=== PATIENT | male | born 1975 | race Caucasian/White ===

== ENCOUNTER 2017-09-16 13:52 | Emergency (ER) | payer OTHER ==
[2017-09-16 13:59] VITALS: BP 121/80; PULSE 53; TEMP 98.9; BMI 23.6
--- NOTE | 2017-09-16 14:01 | PDOC ---
History of Present Illness - General Chief Complaint: Injury Stated Complaint: CHIN LAC Time Seen by Provider: 09/16/17 13:53 History Source: Patient Exam Limitations: No Limitations - History of Present Illness Initial Comments: 09/16/17 13:59 41 y/o male playing basketball today tripped and injured chin. No LOC. Occurred 1 hour prior to arrival. UTD with Tetanus. No jaw pain or swelling. No weakness or numbness. Occurred: reports: just prior to arrival Severity: reports: mild Pain Location: reports: face Past History - Past Medical History Allergies/Adverse Reactions: Allergies Allergy/AdvReac Type Severity Reaction Status Date / Time No Known Allergies Allergy Verified 09/16/17 13:53 Home Medications: Ambulatory Orders NK [No Known Home Medication] 09/16/17 Review of Systems - Review of Systems Able to Perform ROS?: Yes Is the patient limited German proficient: No Constitutional: No: Chills, Fever Respiratory: No: Cough, Shortness of Breath Cardiac (ROS): No: Chest Pain ABD/GI: No: Nausea, Vomiting Integumentary: No: Bruising, Erythema All Other Systems: Reviewed and Negative *Physical Exam - Physical Exam General Appearance: Yes: Nourished, Appropriately Dressed. No: Apparent Distress HEENT: positive: EOMI, ANJEL, Normal Voice, Symmetrical, Pharynx Normal. negative: Normal ENT Inspection (small 1 cm jagged laceration to chin, no malalignment, no TMJ enderness, minimal bleeding noted) Neck: positive: Trachea midline, Normal Thyroid, Supple. negative: Tender, Rigid, Carotid bruit Respiratory/Chest: positive: Lungs Clear, Normal Breath Sounds. negative: Chest Tender, Respiratory Distress Cardiovascular: positive: Regular Rhythm, Regular Rate, S1, S2. negative: Edema , JVD, Murmur Vascular Pulses: Femoral (R): 4+, Femoral (L): 4+, Carotid (R): 4+, Carotid (L) : 4+, Dorsalis-Pedis (R): 4+, Doralis-Pedis (L): 4+ Gastrointestinal/Abdominal: positive: Normal Bowel Sounds, Flat, Soft. negative : Tender, Organomegaly Lymphatic: negative: Adenopathy, Tenderness, Other Musculoskeletal: positive: Normal Inspection. negative: Decreased Range of Motion Extremity: positive: Normal Capillary Refill, Normal Inspection, Normal Range of Motion. negative: Tender Integumentary: positive: Normal Color, Dry, Warm, Other (1 cm jagged laceration under maura more to left side, no swelling or tenderness, minimal bleeding noted) . negative: Erythema, Swelling Neurologic: positive: treater II-XII NML intact, Fully Oriented, Alert, Normal Mood/ Affect, Normal Response, Motor Strength 5/5 Procedures - Laceration/Wound Repair Left Medial Jaw Wound Length: to 2.5 cm Wound Explored: clean, no foreign body present Wound's Depth, Shape: superficial, irregular, contused tissue Irrigated w/ Saline: Yes Betadine Prep: No Anesthesia: 1% Lidocaine (1 cc injected into wound) Wound Repaired With: Sutures Suture Size/Type: 6:0, nylon Number of Sutures: 2 Layer Closure: No Sterile Dressing Applied: No (Bacitracin applied) Sling Applied: No Progress: 09/16/17 14:20 Pt tolerated procedure well, wound approximated well. Progress Note - Progress Note Progress Note: Pt with laceration to chin, will require suturing. UTD with Tetanus. Ice, Motrin, rest Remove sutures in 5-7 days If worsen return to ER *DC/Admit/Observation/Transfer Diagnosis at time of Disposition: Laceration of chin Qualifiers: Encounter type: initial encounter Qualified Code(s): S01.81XA - Laceration without foreign body of other part of head, initial encounter - Discharge Dispostion Disposition: HOME Condition at time of disposition: Stable Decision to Admit order: No - Referrals - Patient Instructions Printed Discharge Instructions: DI for Laceration Repair -- Simple Additional Instructions: Ice, Motrin, rest Keep clean Remove sutures in 5-7 days If worsen return to ER - Post Discharge Activity
== END 2017-09-16 14:30 | disposition home or self-care (01) ==
LOC: FER 13:52
PROC: 0HQ1XZZ Repair Face Skin, External Approach (ICD-10-PCS; principal; 2017-09-16)
DX: S01.81XA Laceration without foreign body of other part of head, initial encounter (principal); W45.8XXA Other foreign body or object entering through skin, initial encounter; Y93.67 Activity, basketball; Y92.310 Basketball court as the place of occurrence of the external cause
CPT/HCPCS: 99282-25

== ENCOUNTER 2022-02-14 02:47 | Emergency (ER) | payer OTHER ==
[2022-02-14 02:55] VITALS: BP 132/92; PULSE 64; RESP 16; TEMP 97.8; BMI 24.2
== END 2022-02-14 03:08 | disposition home or self-care (01) ==
LOC: FER 02:47
DX: R10.84 Generalized abdominal pain (principal)
CPT/HCPCS: 99283-25

== ENCOUNTER 2022-09-30 10:17 | Emergency (ER) | payer OTHER ==
[2022-09-30] MEDS ORDERED: ONDANSETRON 4 MG/2 ML VIAL IVPUSH ONE (10:23)
[2022-09-30] MEDS ORDERED: SODIUM CHLORIDE 1,000 ML IV STA ×2 (10:23→11:59)
[2022-09-30] MEDS ORDERED: KETOROLAC TROMETHAMINE 30 MG/1 ML VIAL IVPUSH ONE (10:23)
[2022-09-30] MEDS ORDERED: KETOROLAC TROMETHAMINE 30 MG/1 ML VIAL ONE (10:46)
[2022-09-30] MEDS ORDERED: ONDANSETRON 4 MG/2 ML VIAL ONE (10:47)
[2022-09-30 11:07] VITALS: BP 112/70; PULSE 51; RESP 18; TEMP 97.8; BMI 24.3
[2022-09-30] MEDS ORDERED: morphine CARPU-JECT 4 MG/1 ML DISP.SYRIN IVPUSH ONE (11:52)
[2022-09-30] MEDS ORDERED: morphine SULFATE 4 MG/ML VIAL ONE (12:00)
== END 2022-09-30 13:37 | disposition home or self-care (01) ==
LOC: FER 10:17
PROC: 3E0333Z Introduction of Anti-inflammatory into Peripheral Vein, Percutaneous Approach (ICD-10-PCS; principal; 2022-09-30)
PROC: 3E033GC Introduction of Other Therapeutic Substance into Peripheral Vein, Percutaneous Approach (ICD-10-PCS; 2022-09-30)
PROC: 3E033GC Introduction of Other Therapeutic Substance into Peripheral Vein, Percutaneous Approach (ICD-10-PCS; 2022-09-30)
PROC: 3E0337Z Introduction of Electrolytic and Water Balance Substance into Peripheral Vein, Percutaneous Approach (ICD-10-PCS; 2022-09-30)
PROC: 3E0337Z Introduction of Electrolytic and Water Balance Substance into Peripheral Vein, Percutaneous Approach (ICD-10-PCS; 2022-09-30)
DX: M54.50 Low back pain, unspecified (principal); R11.0 Nausea; N20.0 Calculus of kidney
CPT/HCPCS: 74176-TC; 81003; 81015; 99284-25